=== PATIENT | female | born 1980 | race African-American/Black ===

== ENCOUNTER 2023-06-26 16:17 | Emergency (ER) | payer SELFPAY ==
[2023-06-26 20:34] LABS: SARS-CoV-2 NAA Rapid Test Not Detected (NotDetected)
== END 2023-06-26 18:37 | disposition home or self-care (01) ==
LOC: ERS 16:17
DX: B34.9 Viral infection, unspecified (principal); F17.210 Nicotine dependence, cigarettes, uncomplicated
CPT/HCPCS: 99283